=== PATIENT | male | born 1975 | race Caucasian/White ===

== ENCOUNTER 2024-09-12 13:51 | Emergency (ER) | payer MEDICARE, MEDICAID, SELFPAY ==
[2024-09-12 13:52] VITALS: BMI 31.7
--- NOTE | 2024-09-12 13:53 | XR_ITS ---
Examination: Foot, right, 3 views Technique: AP, oblique, lateral views foot, 3 views Date and time of exam: September 12, 2024 1520 hours INDICATIONS: Injury to foot yesterday, foot pain. FINDINGS: No acute fractures and no dislocation No foreign body IMPRESSION: No acute fracture
--- NOTE | 2024-09-12 13:53 | XR_ITS ---
EXAMINATION: Ankle, right 3 views . Technique: Ankle AP, oblique, lateral 3 views Date and time of exam: April 14, 2024 1520 hours INDICATIONS: Injury to the ankle today, ankle pain. FINDINGS: No acute fracture No dislocation No foreign body IMPRESSION: No acute fracture
[2024-09-12 14:09] VITALS: BP 141/97; PULSE 86; RESP 18; TEMP 36.8; O2SAT 97
[2024-09-12] MEDS: oxyCODONE/APAP 5/325 TABLET 1 TAB PO (15:04)
[2024-09-12] MEDS: KETOROLAC INJ 30 MG/ML VIAL IM (15:05)
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
[2024-09-12 16:44] VITALS: PULSE 78; RESP 15
== END 2024-09-12 16:45 | disposition home or self-care (01) ==
PROVIDERS: Emergency Provider Emergency Medicine; PCP Family Medicine
DX: S93.601A Unspecified sprain of right foot, initial encounter (principal); V03.00XA Pedestrian on foot injured in collision with car, pick-up truck or van in nontraffic accident, initial encounter
CPT/HCPCS: 73610; 73630; 96372; 99283; J1885; A9270

== ENCOUNTER 2025-01-14 19:33 | Emergency (ER) | payer MEDICARE, MEDICAID, SELFPAY ==
[2025-01-14 19:33] VITALS: BMI 31.9
[2025-01-14 19:53] VITALS: BP 150/90; PULSE 76; RESP 20; TEMP 37.2; O2SAT 98
--- NOTE | 2025-01-14 20:05 | PD.EDABDPN ---
ED Abdominal Pain RME/HPI General Chief Complaint: Abdominal Pain Stated complaint: R ABD PAIN, FEVER Time seen by provider: 01/14/25 19:56 Arrival date/time: 01/14/25 19:33 49-year-old male with a history of umbilical hernia reports with complaints of right upper and lower quadrant abdominal pain x 3 days. Patient also reports some nausea and possible fever but no vomiting no diarrhea no blood or mucus in stools. Patient has taken multiple [id number] medications with no improvement of symptoms Limitations: no limitations Related Data Previous Rx's ?Medication ?Instructions ?Recorded ondansetron 4 mg disintegrating 4 mg PO Q8H PRN nausea and 01/15/25 tablet vomiting #15 tabs oxycodone-acetaminophen 5 mg-325 1 tab PO BID PRN pain #15 tabs 01/15/25 mg tablet (Percocet) tamsulosin 0.4 mg capsule (Flomax) 0.4 mg PO QDAY #30 caps 01/15/25 Allergies Allergy/AdvReac Type Severity Reaction Status Date / Time No Known Allergies Allergy Verified 01/14/25 19:36 Review of Systems Constitutional Constitutional: Denies chills and Denies fever(s) Cardiovascular Cardiovascular: Denies chest pain, Denies diaphoresis and Denies dyspnea Respiratory Respiratory: Denies cough and Denies dyspnea Gastrointestinal Gastrointestinal: Reports abdominal pain, Denies bloating, Denies change in bowel habits, Denies heartburn, Denies hematochezia, Denies melena, Denies vomiting and Reports other (Umbilical hernia, reducible) Past Medical History Social History SMOKING STATUS: Never smoker ED Exam General Limitations: Present no limitations General appearance: Present alert and in no apparent distress Chest Chest inspection: Present normal inspection and symmetric chest wall rise Respiratory Respiratory exam: Present normal lung sounds bilaterally Cardiovascular Cardiovascular exam: Present regular rate, normal rhythm and normal heart sounds Abdominal Exam Abdominal exam: Present soft, tenderness and normal bowel sounds; Absent distention, guarding, rebound, ascites, mass or bruit Abdominal tenderness: Present RUQ and RLQ Extremities Exam Extremities exam: Present normal inspection and full ROM Back Exam Back exam: Present normal inspection and full ROM Neurological Exam Neurological exam: Present alert, oriented X3 and CN II-XII intact Psychiatric Psychiatric exam: Present normal affect and normal mood Skin Skin exam: Present warm, dry, intact and normal color Course Course Course Narrative: 49-year-old male with a previous history of renal stones reports with complaints of right upper and lower quadrant abdominal pain and right back pain x [address] of the abdomen is significant for 4 mm mildly obstructing calculus right kidney CMP shows mildly elevated creatinine of 1.5 but CBC is unremarkable lipase is unremarkable urinalysis significant for blood in urine indicative of renal stones. Patient is stable nontoxic-appearing afebrile stable vital signs responds well to pain medication he will be discharged home on oral pain medications and oral fluids as he tolerated them well in the emergency department. He is referred to urology and to his primary care provider. He is advised that if symptoms should worsen to return to the emergency department immediately. Disposition discussed with Dr. Ballard and he agrees Quality Measures none Orders Category Date Time Status CT Screening NOW Care 01/14/25 20:52 Active Miscellaneous Nursing Order NOW Care 01/15/25 02:[address] abdomen pelvis wo/w con Stat Exams 01/14/25 20:51 Taken CBC Stat Lab 01/14/25 20:18 Completed CMP [Comprehensive Metabolic Panel] Stat Lab 01/14/25 20:18 Completed Lipase Stat Lab 01/14/25 20:18 Completed UA [Urinalysis] Stat Lab 01/14/25 20:18 Completed Metoclopramide Inj [Reglan Inj] Med 01/15/25 00:21 Discontinued 10 mg IVP X1 ONE Morphine* Inj Med 01/14/25 21:58 Discontinued 2 mg IVP X1 ONE Morphine* Inj Med 01/14/25 23:38 Discontinued 2 mg IVP X1 ONE Morphine* Inj Med 01/14/25 23:39 Discontinued 2 mg IVP X1 ONE Prochlorperazine Inj [Compazine Inj] Med 01/14/25 23:29 Discontinued 10 mg IM X1 ONE Promethazine Inj [Phenergan Inj] Med 01/14/25 21:58 Discontinued 12.5 mg IV X1 ONE Vital Signs Vital signs: Vital Signs Temperature 98.9 F 01/14/25 19:53 Pulse Rate 76 01/14/25 19:53 Respiratory Rate 20 01/14/25 19:53 Blood Pressure 150/90 H 01/14/25 19:53 Pulse Oximetry (%) 98 01/14/25 19:53 Oxygen Delivery Method Room Air 01/14/25 19:53 Abdominal Pain MDM Patient data External records reviewed:: None Clinical information provided by:: patient Social determinants that could affect healthcare access:: none Patient has the following chronic illnesses:: none How is presenting disease/condition affected by chronic disease/condition?: no chronic disease Evaluation data The following diagnostics were reviewed and interpreted by me:: lab results and radiology exam(s) Lab and/or radiology exams considered but not ordered:: none Interpretation Summary: 4 mm renal stone Medications / Prescriptions Medications or Prescriptions considered but not ordered:: None Medication administrations:: Medication Administration History Discontinued Medications Metoclopramide HCl (Metoclopramide Inj 5 Mg/Ml Vial 2 Ml) 10 mg IVP X1 ONE; Protocol Stop: 01/15/25 00:22 Last Admin: 01/15/25 00:53 Dose: 10 mg Documented By: CL Morphine Sulfate (Morphine Sulf Inj 4 Mg/Ml Vial) 2 mg IVP X1 ONE Stop: 01/14/25 21:59 Last Admin: 01/14/25 23:40 Dose: Not Given Documented By: SUSHANT Non-Admin Reason: Discontinued Morphine Sulfate (Morphine Sulf Inj 4 Mg/Ml Vial) 2 mg IVP X1 ONE Stop: 01/14/25 23:39 Last Admin: 01/14/25 23:40 Dose: Not Given Documented By: SUSHANT Non-Admin Reason: Discontinued Morphine Sulfate (Morphine Sulf Inj 4 Mg/Ml Vial) 2 mg IVP X1 ONE Stop: 01/14/25 23:40 Last Admin: 01/15/25 00:29 Dose: 2 mg Documented By: CL Prochlorperazine Edisylate (Prochlorperazine Inj 5 Mg/Ml Vial 2 Ml) 10 mg IM X1 ONE; Protocol Stop: 01/14/25 23:30 Last Admin: 01/15/25 00:22 Dose: Not Given Documented By: CL Non-Admin Reason: Discontinued Promethazine HCl (Promethazine Inj 25 Mg/Ml Vial) 12.5 mg IV X1 ONE; Protocol Stop: 01/14/25 21:59 Last Admin: 01/14/25 23:50 Dose: Not Given Documented By: SUSHANT Non-Admin Reason: Discontinued As above Consultations Consultation(s) initiated? (list below): No Diagnosis Differential diagnosis abdominal pain: acute appendicitis, calculus of kidney, gastroenteritis and small bowel obstruction Most likely diagnosis given after review of the tests above:: Calculus of kidney Admission Indicated Admission indicated?: not indicated Admission Request Was there a request for admission?: No Disposition Plan Disposition Plan: Discharge Discharge Attestation Discharge Attestation: The patient and all family members were given an opportunity to ask questions and understood the discharge instructions. Discharge instructions specifically effects, indications for sooner follow up or return to the emergency department, and the expected course of current diagnosis. Patient condition: Stable Discharge Plan Plan Patient Disposition: HOME (Self Care) Prescriptions/Referrals Prescriptions/Med Rec: New tamsulosin [Flomax] 0.4 mg capsule 0.4 mg PO QDAY Qty: 30 0RF oxycodone-acetaminophen [Percocet] 5-325 mg tablet 1 tab PO BID MDD 4g APAP PRN (Reason: pain) Qty: 15 0RF ondansetron 4 mg tablet,disintegrating 4 mg PO Q8H PRN (Reason: nausea and vomiting) Qty: 15 0RF Referrals: Hebert Howell MD [Physician, Urology] - 01/15/25 Marleni Minor MD [Primary Care Provider, Family Practice] - In 1 week Problem List Clinical Impression: Calculus of kidney Patient/Caregiver Discharge Instructions Education Materials: ED Kidney Stone Undescended No ... Additional Instructions: Discharge Instructions from Dr. Ballard: --Your symptoms are due to a 4 mm right kidney stone.? It is outside the kidney.? It is trying to pass into your bladder.? --Increase oral fluid to flush your kidneys.? Maintain clear urine. if it's dark or yellow then increase oral fluid.? If you don't do this, you won't pass it.? --Take Flomax to help decrease spasms to increase the chance of passing it.? --Take Zofran as needed for nausea or vomiting. --Take prescribed medication for pain control.? If you are in severe pain, you won't pass it.?? --Strain your urine so you can catch the stone when you pass it.? --Follow up with the urologist and your PCP. Take the stone with you for analysis because certain stones can be prevented.? If you didn't pass it, ask for referral to see urologist.? Who will take the stone out for you. --Seek immediate medical care with fever over 100.4, persistent vomiting despite Zofran, intolerable pain, or with any concerns.?? Print Language: Nicaraguan Stand Alone Forms: Denise Award Info., Patient Portal Info Letter
[2025-01-14 20:24] LABS: Collection Type, Urine Clean Catch
[2025-01-14 20:32] LABS: Basophils # (Auto) 0.1 Thou/mm3 (0.0-0.2); Basophils % (Auto) 1 % (0-2.5); Eosinophils # (Auto) 0.1 Thou/mm3 (0.0-0.5); Eosinophils % (Auto) 1 % (0-10); Hematocrit 41.7 % (41.0-53.0); Hemoglobin 14.8 g/dL (13.5-16.0); Immature Granulocytes Auto 0.03 Thou/mm3 (0.00-0.00); Lymphocytes # (Auto) 1.2 Thou/mm3 (1.0-4.8); Lymphocytes % (Auto) 15 % (10-50); Mean Corpuscular HGB Conc 35.5 g/dl (31.0-37.0); Mean Corpuscular Hemoglobin 30.8 pg (25.0-35.0); Mean Corpuscular Volume 87 fL (80-100); Monocytes # (Auto) 0.7 Thou/mm3 (0.0-0.8); Monocytes % (Auto) 10 % (0-12); Neutrophils # (Auto) 5.6 Thou/mm3 (1.8-7.7); Neutrophils % (Auto) 73 % (37-80); Nucleated Red Blood Cell # 0.00 Thou/mm3 (0.00-0.00); Nucleated Red Blood Cell % 0 /100 WBC (0); Platelet Count 198 Thou/mm3 (140-440); RDW Standard Deviation 39.5 fL (35.1-43.9); Red Blood Count 4.80 Miln/mm3 (4.50-5.90); White Blood Count 7.6 Thou/mm3 (3.8-10.6)
[2025-01-14 20:45] LABS: Bilirubin,Urine Negative (Negative); Blood,Urine 1+ (Negative); Clarity,Urine Clear (Clear/Hazy); Color,Urine Yellow (Lt Yel-Yel); Glucose, Urine Negative (Negative); Ketones,Urine Negative (Negative); Leukocyte Esterase,Urine Positive (Negative); Nitrite,Urine Negative (Negative); PH,Urine 6.0 (5.0-7.0); Protein,Urine Trace (Neg - Trace); RBC,Urine 8 /hpf (0-3); Specific Gravity,Urine 1.025 (1.001-1.035); Squamous Epithelial Cell,Urine < 1 /hpf (0-5); Urobilinogen,Urine Negative mg/dL (0.0-1.0); WBC,Urine 6 /hpf (0-5)
--- NOTE | 2025-01-14 20:51 | XR_ITS ---
Examination: CT abdomen, without intravenous contrast. CT pelvis, without intravenous contrast. CT abdomen, with intravenous contrast. CT pelvis, with intravenous contrast. 2-D sagittal coronal reconstructions. Date and time of exam: January 15, 2025, 0044 hours INDICATIONS: Right upper abdominal pain right lower abdominal pain right flank pain beginning 3 days ago. CTDI: vol (mGy) 17.34 DLP: (mGycm) 1137 Technique: Multiple 3.0 axial images of the abdomen and pelvis without intravenous contrast, 3.0 mm slice thickness. Multiple 3.0 postcontrast images abdomen and pelvis also obtained, post intravenous injection 30 cc [id number] 2-D sagittal and coronal reconstructions. Low dose protocols were performed. One or more of the following dose reduction techniques were used; automated exposure control, adjustment of the mA and/or KV according to patient size, use of iterative reconstruction technique. Findings: Diffuse fatty infiltration throughout the liver and no focal liver or splenic lesions No gallstones No pancreatic or adrenal mass. 6 mm posterior right renal calculus Mild right hydronephrosis, 4 mm proximal right ureteral calculus 29 mm umbilical hernia containing incarcerated fat Normal appendix No bladder mass or bladder calculi Fat-containing left inguinal hernia IMPRESSION: Mild right hydronephrosis secondary to 4 mm proximal right ureteral calculus Normal appendix
[2025-01-14 21:01] LABS: Alanine Aminotransferase 40 U/L (10-49); Albumin, Serum 5.0 gm/dL (3.5-5.0); Albumin/Globulin Ratio 2.3 (1.2-2.2); Alkaline Phosphatase 81 U/L (46-116); Anion Gap 11 (7-16); Aspartate Amino Transferase 25 U/L (0-34); BUN/Creatinine Ratio 11 Ratio (12-20); Bilirubin,Total 0.6 mg/dL (0.3-1.2); Blood Urea Nitrogen 17 mg/dL (9-23); Calcium 9.6 mg/dL (8.3-10.6); Calcium (Corrected) 9.6 mg/dL (8.5-10.1); Carbon Dioxide 27.4 mMol/L (20.0-31.0); Chloride 105 mMol/L (98-107); Creatinine (Component) 1.5 mg/dL (0.6-1.3); Estimated Creatinine Clearance 68.1 mL/min (>60); Globulin 2.2 gm/dL (2.3-3.5); Glucose 112 mg/dL (74-106); Lipase 32 U/L (12-53); Osmolality,Calculated 287 (275-295); Potassium 3.8 mMol/L (3.4-5.1); Sodium 143 mMol/L (136-145); Total Protein 7.2 gm/dL (5.7-8.2); eGFR 57 See Note
[2025-01-15] MEDS: MORPHINE SULF INJ 4 MG/ML VIAL 2 MG IVP ×2 (00:29→02:39)
[2025-01-15 00:52] VITALS: BP 128/79; PULSE 76; RESP 18; TEMP 36.9; O2SAT 95
[2025-01-15] MEDS: METOCLOPRAMIDE INJ 5 MG/ML VIAL 2 ML 10 MG IVP (00:53)
--- NOTE | 2025-01-15 02:02 | PRELIM_ITS ---
CT scan of the abdomen and pelvis without and with intravenous contrast (axial sections with sagittal and coronal reformats) January 15, 2025 0041 hours Clinical History: RUQ, RLQ and flank pain Comparison: No prior study is available for comparison. Findings: The lung bases are clear. There is a 4 mm obstructing calculus in the right proximal ureter (axial image 124/311) causing [id number] hydroureteronephrosis and periureteric/perinephric fat stranding. There is a nonobstructing calculus in the right interpolar calyx, measuring 6 mm. There is fatty infiltration of the liver. The gallbladder, pancreas, spleen and adrenals are unremarkable. No evidence of bowel obstruction. The appendix is within normal limits. There is no mesenteric or retroperitoneal adenopathy. The urinary bladder is unremarkable. There is no free fluid or free air. The aorta and its branches demonstrate atheromatous calcification without evidence of aneurysm. A moderate-sized fat-containing umbilical hernia is present. A small fat- containing left inguinal hernia is present. Mild degenerative changes are identified in the Mild degenerative changes are identified in the spine. Impression: 4 mm obstructing calculus in the right proximal ureter causing [id number] hydroureteronephrosis. No evidence of appendicitis. Nonobstructing right renal calculus. Other findings as described above. Report Electronically Signed By: Lizbeth Sanchez 01/15/2025 2:02:16 AM [EST]
== END 2025-01-15 02:55 | disposition home or self-care (01) ==
PROVIDERS: Physician Assistant; Emergency Provider Emergency Medicine; PCP Family Medicine
DX: K42.9 Umbilical hernia without obstruction or gangrene (principal)
CPT/HCPCS: 36415; 74178; 80053; 81001; 83690; 85025; 96374; 96375; 96376; 99283; A4649; J2270; J2765; Q9967